=== PATIENT | male | born 2005 | race Caucasian/White ===

== ENCOUNTER 2023-08-21 15:48 | Emergency (ER) | payer OTHER, SELFPAY ==
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
[2023-08-21 15:55] VITALS: BP 149/93; PULSE 79; RESP 18; TEMP 36.6; O2SAT 96; BMI 21.6
[2023-08-21] MEDS: Lidocaine HCl 1 % MPF 5 ML VIAL SUBCUT (18:31)
--- NOTE | 2023-08-21 19:17 | PC.NURSE ---
Pt refused food. Pt requested and given water. Plan of care ongoing.
== END 2023-08-21 19:44 | disposition home or self-care (01) ==
PROVIDERS: Emergency Provider Emergency Medicine
DX: S61.411A Laceration without foreign body of right hand, initial encounter (principal); X58.XXXA Exposure to other specified factors, initial encounter; Y93.9 Activity, unspecified; Y92.9 Unspecified place or not applicable; Y99.9 Unspecified external cause status
CPT/HCPCS: 12001; 73110; 73130; 99284

== ENCOUNTER 2024-02-23 13:04 | Emergency (ER) | payer OTHER, SELFPAY ==
--- NOTE | ~2024-02-23 | CT_ITS ---
EXAMINATION: CT head/brain wo IV con, CT facial bones wo IV con CLINICAL INFORMATION: Reason for Exam fall w/ head strike COMPARISON: None. TECHNIQUE: Contiguous axial imaging was performed without intravenous contrast. Sagittal and coronal reformatted images were obtained. This CT examination was performed using dose optimization techniques as appropriate, variously including the following: * Automated exposure control * Adjustment of mA and/or kV according to patient size (this includes techniques or standardized protocols for targeted exams where dose is matched to indication/reason for exam; i.e. extremities or head) Use of iterative reconstruction technique DLP: 822 mGy-cm FINDINGS: No acute osseous or soft tissue abnormality. The mastoid air cells and visualized portions of the paranasal sinuses are well aerated. There is no evidence of acute intracranial hemorrhage or territorial infarction. No abnormal mass effect or midline shift is seen. Lane to white matter differentiation is well preserved. No extra-axial fluid collections are identified. No hydrocephalus. No significant volume loss. There is no abnormal attenuation within the brain parenchyma. Bilateral mild nasal bone deformities, compatible with fracture. No other evidence of acute facial fracture CT/CT head/brain wo IV con IMPRESSION: 1. No acute intracranial abnormality including hemorrhage, mass effect, hydrocephalus, or acute territorial edematous infarction. 2. Mild deformities of the bilateral nasal bones, compatible with fracture. No other evidence of acute facial fracture.
--- NOTE | ~2024-02-23 | XR_ITS ---
EXAMINATION: XR HAND, RIGHT CLINICAL INFORMATION: Pain COMPARISON: None available. TECHNIQUE: PA, lateral, and oblique views of the right hand. FINDINGS: The bones and soft tissues are normal. No fracture. Alignment is anatomic. Joint spaces are maintained. No erosions or soft tissue calcifications. XR/XR hand RT min 3V IMPRESSION: Normal right hand.
--- NOTE | ~2024-02-23 | CT_ITS ---
EXAMINATION: CT head/brain wo IV con, CT facial bones wo IV con CLINICAL INFORMATION: Reason for Exam fall w/ head strike COMPARISON: None. TECHNIQUE: Contiguous axial imaging was performed without intravenous contrast. Sagittal and coronal reformatted images were obtained. This CT examination was performed using dose optimization techniques as appropriate, variously including the following: * Automated exposure control * Adjustment of mA and/or kV according to patient size (this includes techniques or standardized protocols for targeted exams where dose is matched to indication/reason for exam; i.e. extremities or head) Use of iterative reconstruction technique DLP: 822 mGy-cm FINDINGS: No acute osseous or soft tissue abnormality. The mastoid air cells and visualized portions of the paranasal sinuses are well aerated. There is no evidence of acute intracranial hemorrhage or territorial infarction. No abnormal mass effect or midline shift is seen. Lane to white matter differentiation is well preserved. No extra-axial fluid collections are identified. No hydrocephalus. No significant volume loss. There is no abnormal attenuation within the brain parenchyma. Bilateral mild nasal bone deformities, compatible with fracture. No other evidence of acute facial fracture CT/CT facial bones wo IV con IMPRESSION: 1. No acute intracranial abnormality including hemorrhage, mass effect, hydrocephalus, or acute territorial edematous infarction. 2. Mild deformities of the bilateral nasal bones, compatible with fracture. No other evidence of acute facial fracture.
--- NOTE | 2024-02-23 13:27 | ECG_ITS ---
Test Reason : SYNCOPE Blood Pressure : / mmHG Vent. Rate : 061 BPM Atrial Rate : 061 BPM P-R Int : 118 ms QRS Dur : 094 ms QT Int : 364 ms P-R-T Axes : 033 030 054 degrees QTc Int : 366 ms Normal sinus rhythm Incomplete right bundle branch block Borderline ECG No previous ECGs available Referred By: Taniya Sherman Electronically Signed By:CAMILO LEIGH MD
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
[2024-02-23 13:36] VITALS: BP 134/72; PULSE 87; RESP 16; TEMP 36.9; O2SAT 95
[2024-02-23 14:10] VITALS: BMI 17.8
--- NOTE | 2024-02-23 14:11 | MHC.EDTECH ---
Patient changed over and belongings put in locker #9
--- NOTE | 2024-02-23 14:13 | PC.NURSE ---
SITTER AT BEDSIDE, PATIENT CHANGED INTO HOSPITAL ATTIRE, BELONGINGS STORED IN POD LOCKER # 9.
[2024-02-23 14:27] VITALS: BP 159/60; PULSE 99; O2SAT 99
[2024-02-23 14:32] LABS: MANUAL DIFF FLAG NO
[2024-02-23 14:33] LABS: Basophils Percent Auto 0.5 % (0-2); Eosinophils Percent Auto 0.3 % (0-4); Hematocrit 46.2 % (42.0-52.0); Hemoglobin 16.1 g/dl (14.0-18.0); Imm Gran Abs Auto 0.02 X10*3/uL (0.00-0.03); Imm Gran Pct Auto 0.3 % (0.0-0.4); Lymphocytes Absolute Auto 1.4 X10*3/uL (1.2-4.9); Lymphocytes Percent Auto 18.4 % (20-40); Mean Corpuscular HGB Conc 34.8 g/dl (31.0-36.0); Mean Corpuscular Hemoglobin 28.6 pg (27.0-33.0); Mean Corpuscular Volume 82.2 fL (80.0-98.0); Mean Platelet Volume 8.2 fL (9.4-12.4); Monocytes Percent Auto 12.1 % (2-11); Neutrophils Absolute Auto 5.4 x10*3/uL (2.0-8.3); Neutrophils Percent Auto 68.4 % (45-73); Platelet Count 240 X10*3/uL (160-400); Red Blood Count 5.62 X10*6/uL (4.60-5.80); Red Cell Distribution Width 12.9 % (11.0-16.0); White Blood Count 7.8 X10*3/uL (4.8-10.8)
[2024-02-23] MEDS: LORazepam 1 MG TABLET PO (14:36)
[2024-02-23 14:47] LABS: Alanine Aminotransferase 18 U/L (0-40); Albumin Level 4.6 g/dL (3.5-5.0); Alkaline Phosphatase 69 U/L (39-117); Anion Gap 10 (12-20); Aspartate Amino Transferase 30 U/L (5-37); Bilirubin Direct 0.3 mg/dL (0.0-0.5); Bilirubin Total 0.6 mg/dL (0.0-1.0); Blood Urea Nitrogen 10 mg/dL (9-16); Calcium 9.7 mg/dL (8.4-10.2); Carbon Dioxide 28 mmol/L (22-29); Chloride 106 mmol/L (96-108); Creatinine Clr Calc Pharmacy 110.8; Estimated Glomerular Filt Rate > 60; Ethanol < 10 mg/dL; Glucose Random 82 mg/dL (60-115); Potassium 3.6 mmol/L (3.3-5.1); Sodium 140 mmol/L (135-145); Total Protein 7.3 g/dL (6.5-8.0)
--- NOTE | 2024-02-23 15:26 | PC.NURSE ---
Patient just moved to [facility] from the Main ED.
[2024-02-23 16:06] LABS: Appearance Urine Clear; Color Urine Yellow; Glucose Urine UA Negative (Negative); Leukocyte Esterase Urine Negative (Negative); Nitrite Urine Negative (Negative); Specific Gravity - Urine 1.015 (1.005-1.025); Urine Blood Negative (Negative); Urine Ketones Negative (Negative); Urine Protein Negative (Neg-Trace)
[2024-02-23 16:14] LABS: Amphetamine Screen Urine Not Detected (Not Detect); Barbiturates, Urine Not Detected (Not Detect); Benzodiazepines Screen Urine Not Detected (Not Detect); Cannabinoid Screen Urine POSITIVE (Not Detect); Cocaine Screen Urine Not Detected (Not Detect); Fentanyl, urine Not Detected (Not Detect); Opiate Screen Urine Not Detected (Not Detect); Phencyclidine Screen Urine Not Detected (Not Detect)
[2024-02-23 18:28] VITALS: BP 134/72; PULSE 87; RESP 16; TEMP 36.9; O2SAT 95
--- NOTE | 2024-02-23 21:25 | MHC.CARE ---
CARE Team evaluation complete. Pt will discharge with a referral to [facility] who will follow up with him for the next 3 days and offer additional support and referrals to therapy/psychiatry. Referral was faxed and activated. Safety plan was created which was discussed with Pt and Pt's mother; they verbalized understanding and had no further questions. Pt will discharge home with his brother.
== END 2024-02-23 18:29 | disposition home or self-care (01) ==
PROVIDERS: Physician Assistant; Emergency Provider Emergency Medicine Emergency Medical Services
DX: F41.9 Anxiety disorder, unspecified (principal); R45.851 Suicidal ideations; S60.221A Contusion of right hand, initial encounter; W22.09XA Striking against other stationary object, initial encounter; S09.92XA Unspecified injury of nose, initial encounter; W18.30XA Fall on same level, unspecified, initial encounter; Y93.9 Activity, unspecified; Y92.9 Unspecified place or not applicable; Y99.9 Unspecified external cause status
CPT/HCPCS: 36415; 70450; 70486; 73130; 80048; 80076; 80307; 81003; 83735; 85025; 93005; 99285; S9485

== ENCOUNTER → 2024-02-23 13:27 | Outpatient (BNV) | payer OTHER, SELFPAY | PROVIDERS: Emergency Provider Emergency Medicine Emergency Medical Services; Visit Provider Internal Medicine Cardiovascular Disease | DX: R55 Syncope and collapse (principal) | CPT/HCPCS: 93010 ==